=== PATIENT | female | born 1940 | race Asian ===

== ENCOUNTER 2019-02-09 08:39 | Day surgery (SDC) | payer MEDICARE, BC ==
[~2019-02-09] VITALS: Ht 165.1 cm; Wt 55.0 kg
[~2019-02-09 08:39] MED LIST: APIXABAN; CEPH250C PO; DONE5TAB7 PO; ESCI10TA48 PO; IRBE300T15 PO; MEMA5TAB PO; QUET25TA33 PO
[2019-02-09 09:23] VITALS: Ht 165.1 cm; Wt 55.0 kg
[2019-02-09 09:33] VITALS: BP 133/68; PULSE 71; RESP 20
[2019-02-09 09:45] VITALS: BP 130/71; PULSE 71; RESP 20
== END 2019-02-09 10:27 | disposition home or self-care (01) ==
LOC: GIL 08:39
PROVIDERS: ATTEND Internal Medicine Gastroenterology
DX: K94.23 Gastrostomy malfunction (principal); Y84.8 Other medical procedures as the cause of abnormal reaction of the patient, or of later complication, without mention of misadventure at the time of the procedure
CPT/HCPCS: 43762